=== PATIENT | female | born 1970 | race Caucasian/White ===

== ENCOUNTER 2017-03-30 19:40 | Emergency (ER) | payer MEDICARE, OTHER ==
[2017-03-30] MEDS ORDERED: LORAZEPAM INJ 2 MG/1 ML VIAL IM ONE (20:44)
[2017-03-30] MEDS ORDERED: HALOPERIDOL LACTATE INJ 5 MG/1 ML VIAL IM ONE (20:44)
[2017-03-30] MEDS ORDERED: DIPHENHYDRAMINE HCL 50 MG/ML VIAL IM ONE (20:45)
[2017-03-30] MEDS ORDERED: ZIPRASIDONE HCL 20 MG CAPSULE PO ONE (20:59)
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
[2017-03-30 21:04] LABS: ABSOLUTE EOSINOPHILS # (AUTO) 0.1 10^3/uL (0.0-0.6); ABSOLUTE LYMPHOCYTES (AUTO) 1.5 10^3/uL (0.5-4.7); ABSOLUTE MONOCYTES (AUTO) 0.7 10^3/uL (0.1-1.4); ABSOLUTE NEUT (AUTO) 4.5 10^3/uL (1.7-8.2); BASOPHILS % (AUTO) 0.6 % (0-2); HEMATOCRIT 36.5 % (36.0-47.0); HEMOGLOBIN 12.4 g/dL (12.0-15.5); HGB HCT DIFFERENCE 0.7; LYMPHOCYTES % (AUTO) 22.1 % (13-45); MEAN CORPUSCULAR HEMOGLOBIN 31.5 pg (27.0-33.4); MEAN CORPUSCULAR VOLUME 93 fl (80-97); MONOCYTES % (AUTO) 10.7 % (3-13); RED BLOOD COUNT 3.95 10^6/uL (3.72-5.28); RED CELL DISTRIBUTION WIDTH 13.3 % (11.5-14.0); SEGMENTED NEUTROPHILS % (AUTO) 65.6 % (42-78); WHITE BLOOD COUNT 6.9 10^3/uL (4.0-10.5)
[2017-03-30 21:22] LABS: ALANINE AMINOTRANSFERASE 27 U/L (9-52); ALKALINE PHOSPHATASE 78 U/L (38-126); ANION GAP 11 (5-19); ASPARTATE AMINO TRANSFERASE 23 U/L (14-36); BILIRUBIN,DIRECT 0.2 mg/dL (0.0-0.4); BILIRUBIN,TOTAL 0.6 mg/dL (0.2-1.3); BLOOD UREA NITROGEN 15 mg/dL (7-20); CALCIUM 8.8 mg/dL (8.4-10.2); CARBON DIOXIDE 23 mmol/L (22-30); CHLORIDE 108 mmol/L (98-107); CREATININE RESULT 0.83 mg/dL (0.52-1.25); GLUCOSE 81 mg/dL (75-110); POTASSIUM 3.5 mmol/L (3.6-5.0); SODIUM 141.8 mmol/L (137-145); TOTAL PROTEIN 7.1 g/dL (6.3-8.2)
[2017-03-30 21:23] LABS: ALCOHOL < 10 mg/dL (NONE DETECTED)
[2017-03-30 22:07] LABS: APPEARANCE,URINE SLIGHTLY-CLOUDY; BILIRUBIN,URINE NEGATIVE (NEGATIVE); GLUCOSE, URINE NEGATIVE (NEGATIVE); KETONES,URINE TRACE mg/dL (NEGATIVE); LEUKOCYTE ESTERASE,URINE NEGATIVE (NEGATIVE); NITRITE,URINE NEGATIVE (NEGATIVE); PROTEIN,URINE NEGATIVE (NEGATIVE); URINE SPECIFIC GRAVITY 1.011; UROBILINOGEN,URINE NEGATIVE mg/dL (<2.0)
[2017-03-30 22:19] LABS: URINE BARBITURATES SCREEN NEGATIVE; URINE METHADONE SCREEN NEGATIVE; URINE OPIATES LOW NEGATIVE; URINE PHENCYCLIDINE SCREEN NEGATIVE
[2017-03-30] MEDS ORDERED: ZOLPIDEM TARTRATE 5 MG TABLET PO ONE (23:30)
[2017-03-31] MEDS ORDERED: DIPHENHYDRAMINE HCL 50 MG CAPSULE PO ONE (03:36)
[2017-03-31] MEDS ORDERED: ZIPRASIDONE HCL 20 MG CAPSULE PO ONE (03:36)
[2017-03-31] MEDS ORDERED: ZIPRASIDONE HCL 40 MG CAPSULE PO SCH (10:00)
[2017-03-31] MEDS ORDERED: LORAZEPAM 1 MG TABLET PO ONE (11:20)
--- NOTE | 2017-03-31 12:53 | EKG REPORT ---
SEVERITY:- ABNORMAL ECG - SINUS RHYTHM PROBABLE LEFT ATRIAL ABNORMALITY RBBB AND LAFB : Confirmed by: Gina Mckenzie MD 31-Mar-2017 12:52:45
[2017-03-31] MEDS ORDERED: LAMOTRIGINE 100 MG TABLET PO ONE (14:32)
[2017-03-31] MEDS ORDERED: CLONIDINE HCL 0.1 MG TABLET PO PRN (14:33)
[2017-03-31] MEDS ORDERED: DIAZEPAM 2 MG TABLET PO SCH (22:00)
[2017-04-01] MEDS ORDERED: ZOLPIDEM TARTRATE 5 MG TABLET PO ONE (01:31)
--- NOTE | 2017-04-01 09:45 | PSYCHOLOGICAL NOTE ---
Psych Note - Psych Note Psych Note: Patient is sitting up coloring in a coloring book. She is also conversing with her significant other. She ate breakfast without problem. She has no complaints at this time other than she is still having problems sleeping. She states that the new medications that were tried yesterday still did not allow her to get adequate sleep. I will discuss this further with the psychiatric care team later today.
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
[2017-04-01 11:10] VITALS: BP 132/85
== END 2017-04-01 11:10 | disposition home or self-care (01) ==
LOC: ER 19:40
DX: F31.9 Bipolar disorder, unspecified (principal); R45.6 Violent behavior; J45.909 Unspecified asthma, uncomplicated; Z72.820 Sleep deprivation; Z79.899 Other long term (current) drug therapy; Z88.0 Allergy status to penicillin
CPT/HCPCS: 93005; 99285; 96372; 36415; 80307 ×4; 85025; 80053; 81001; 93010; A9270 ×10; J1200; J2060; J3490